=== PATIENT | female | born 1995 | race Caucasian/White ===

== ENCOUNTER 2020-03-04 07:14 | Emergency (ER) | payer OTHER, SELFPAY ==
--- NOTE | ~2020-03-04 | CT_ITS ---
EXAMINATION: CT abdomen pelvis wo con DATE: 03/04/2020 08:21 INDICATION: Right flank pain. TECHNIQUE: Computed tomography (CT) of the abdomen and pelvis was performed without intravenous contr ast. Automated exposure control and iterative reconstruction technique were employed. The dose-length product was 971.63 mGy-cm. COMPARISON: None. FINDINGS: The visualized portions of the lung bases demonstrate minimal atelectasis. No pleural effus ion. The heart size is normal. No pericardial effusion. There is diffuse hepatic steatosis. The gallb ladder, spleen, pancreas, adrenal glands, and left kidney are normal. There is mild right hydronephro sis and hydroureter. There is a 4 mm stone in distal right ureter. There are no dilated loops of rudy l. The appendix is normal. There are no pathologically enlarged lymph nodes. There is trace pelvic as cites, likely physiologic. There is mild lumbar spondylosis. IMPRESSION: 1. 4 mm stone in distal right ureter with mild right hydronephrosis and hydroureter. 2. Diffuse hepatic steatosis. Reviewed, dictated and finalized at location B. FRAME TENDER IMPRESSION: 1. 4 mm stone in distal right ureter with mild right hydronephrosis and hydrour eter. 2. Diffuse hepatic steatosis.
[2020-03-04 07:38] VITALS: BP 131/74; PULSE 80; RESP 16; TEMP 36.6; O2SAT 98
[2020-03-04 07:44] LABS: Add Urine Microscopic? YES; Appearance Urine Cloudy (Clear); Bilirubin Urine Negative (Negative); Blood Urine 3+ (Negative); Color Urine Amber (Yellow); Glucose Urine UA Negative (Negative); Ketones Urine Negative (Negative); Leukocyte Esterase Ur Negative (Negative); Nitrate Urine Negative (Negative); Protein Urine 1+ (Negative); Specific Grav Ur >= 1.030 (1.010-1.020); Urobilinogen Urine 0.2 mg/dL (0.2-1.0)
[2020-03-04 07:49] LABS: RBC Urine >75 /hpf (0-2); WBC Urine None seen /hpf (0-3)
[2020-03-04 07:50] LABS: Bacteria Urine 1+ /hpf; Squamous Epithelial Cell Urine Few /hpf (Few)
[2020-03-04] MEDS: KETOROLAC (*BKC) 60 MG/2 ML VIAL IM (07:50)
[2020-03-04 07:54] LABS: Pregnancy On Board Control Positive; Urine Pregnancy Test Negative
[2020-03-04 08:03] LABS: Basophils Absolute Auto 0.05 K/mm3 (0.00-0.10); Basophils Percent Auto 0.6 % (0.0-1.0); Eosinophils Percent Auto 6.1 % (1.0-6.0); Hematocrit 40.6 % (35.0-49.0); Immature Granulocyte Absolute 0.02 K/mm3 (0.00-0.00); Immature Granulocyte Percent A 0.2 % (0.0-0.0); Lymphocytes Absolute Auto 3.83 K/mm3 (1.10-4.50); Lymphocytes Percent Auto 46.9 % (18.0-42.0); Mean Corpuscular HGB Conc 34.5 g/dL (32.0-36.0); Mean Corpuscular Hemoglobin 30.4 pg (27.0-31.0); Mean Corpuscular Volume 88.1 fL (78.0-102.0); Mean Platelet Volume 9.9 fl (9.2-11.8); Monocytes Absolute Auto 0.67 K/mm3 (0.10-0.90); Monocytes Percent Auto 8.2 % (2.0-11.0); Neutrophils Absolute Auto 3.1 K/mm3 (1.7-7.2); Platelet Count Result 238 K/mm3 (150-420); Red Blood Count 4.61 M/mm3 (4.20-5.40); Red Cell Distribution Width 12.2 % (11.6-14.4); White Blood Count 8.2 K/mm3 (4.8-10.8)
[2020-03-04 08:18] LABS: Alanine Aminotransferase 63 U/L (14-59); Albumin Level 3.6 g/dL (3.4-5.0); Alkaline Phosphatase 83 U/L (46-116); Anion Gap 8 mmol/L (8-16); Aspartate Amino Transferase 25 U/L (15-37); Bilirubin,Total 0.2 mg/dL (0.00-1.00); Blood Urea Nitrogen 16 mg/dL (7-18); Calcium 8.7 mg/dL (8.5-10.1); Carbon Dioxide 26 mmol/L (21-32); Chloride 106 mmol/L (98-108); Estimated CRCL calculation 82 ml/min; Estimated Glomerular Filt Rate > 60; Glucose 120 mg/dL (70-99); Osmolality Calculated 292 mOsm/kg (285-295); Potassium 4.1 mmol/L (3.5-5.1); Sodium 140 mmol/L (136-145); Total Protein 7.1 g/dL (6.4-8.2)
[2020-03-04] MEDS: TAMSULOSIN HCL 0.4 MG CAPSULE PO (08:45)
--- NOTE | 2020-03-04 08:48 | ED.ABDPAIN ---
HPI - Abdominal Pain General Chief Complaint: Abdominal Pain Stated Complaint: back and abd pain Time Seen by Provider: 03/04/20 07:45 Source: patient and family Mode of arrival: ambulatory Limitations: no limitations History of Present Illness HPI narrative: Joshua says she has had abdominal pain going from left flank toward groin for the past several hours starting last last pm at 11pm. This is moderately severe, ongoing, crampy in nature, and not associated with nausea. Her urine has been tea colored. NSAIDs at home have not relieved the pain. Pertinent past history: other (depression, anxiety) Exacerbating factors: nothing Relieving factors: nothing Treatments prior to arrival: NSAIDs Related Data Home Medications Medication Instructions Recorded Confirmed atorvastatin 10 mg PO DAILY 03/04/20 03/04/20 lamotrigine 25 mg PO DAILY 03/04/20 03/04/20 venlafaxine 10 mg PO DAILY 03/04/20 03/04/20 Allergies Allergy/AdvReac Type Severity Reaction Status Date / Time No Known Allergies Allergy Verified 03/04/20 07:37 Review of Systems Constitutional: Constitutional: Reports no additional constitutional complaints Eyes: Eyes: Reports no additional eye complaints ENT: Reports system reviewed and no additional complaints, except as documented Cardiovascular: Cardiovascular: Reports no additional cardiovascular complaints Respiratory: Respiratory: Reports no additional respiratory complaints Gastrointestinal: Gastrointestinal: Reports no additional gastrointestinal complaints Genitourinary: Genitourinary: Reports no additional female genitourinary complaints Musculoskeletal: Musculoskeletal: Reports no additional musculoskeletal complaints Integumentary/Breasts: Skin/Breast: Reports system reviewed and no additional complaints, except as docu Neurologic: Reports system reviewed and no additional complaints, except as documented Psychiatric: Psychiatric: Reports no additional psychiatric complaints Endocrine: Endocrine: Reports no additional endocrine complaints Hematologic/Lymphatic: Hematologic/Lymphatic: Reports no additional hematologic/lymphatic complaints Allergic/Immunologic: Allergic/Immunologic: Reports no additional allergic/immunologic complaints PMFSH Past Medical History Medical History Depression Surgical History Surgical History No significant past surgical history Family History Family History Other No significant family history Social History Social History Smoking status: Light tobacco smoker Alcohol use details: very rare minimal alcohol use Living arrangements: with friend(s) Exam Const: General: no acute distress HENMT: Head: normal to inspection Ears: TM's normal bilaterally General nose exam: Normal nares present Face and sinus: normal facial exam Eyes: Conjunctivae: conjunctivae normal EOM: EOMs intact bilaterally Neck: Neck: normal visual inspection Chest: Chest palpation & inspection: normal inspection of the chest Resp: Effort & Inspection: normal respiratory effort Cardio: Rate: regular rate Rhythm: regular rhythm GI: GI Palp: Yes Soft to palpation Auscultation: normal bowel sounds : General: Yes no CVA tenderness Skin: General skin exam: normal color Neuro: General: patient oriented x3 Speech: normal speech Extrem: General: normal to inspection Psych: Appearance: grossly normal Mental Status: mental status grossly normal Thought content: Yes Normal thought content present Course Course Emergency Course: Labs and CT scan reviewed with patient. She appears much improved after ketorolac 60mg Im. We will send her home with scripts for ketorolac, zofran odt, a few hydrocodone, and flomax .4 bid. I have asked her to follow up wit
[2020-03-04 08:50] VITALS: BP 136/75; PULSE 72; RESP 20; O2SAT 98
== END 2020-03-04 09:00 | disposition home or self-care (01) ==
PROVIDERS: Emergency Provider Emergency Medicine; PCP Physician Assistant
DX: N20.0 Calculus of kidney (principal)
CPT/HCPCS: 36415; 74176; 80053; 81001; 81025; 85025; 96372; 99283; 99284; A9270; J1885

== ENCOUNTER 2020-05-08 02:44 | Emergency (ER) | payer OTHER, SELFPAY ==
--- NOTE | ~2020-05-08 | CT_ITS ---
EXAMINATION: CT abdomen pelvis w con DATE: 05/08/2020 04:59 INDICATION: Right flank pain. Right lower quadrant tenderness. TECHNIQUE: Computed tomography (CT) of the abdomen and pelvis was performed with 100 mL Omnipaque 350 intravenous contrast. Automated exposure control and iterative reconstruction technique were employe d. The dose-length product was 695.66 mGy-cm. COMPARISON: None. FINDINGS: The visualized portions of the lung bases demonstrate mild atelectasis. No pleural effusion . The heart size is normal. No pericardial effusion. There is diffuse hepatic steatosis. The gallblad kanika, spleen, pancreas, adrenal glands, and left kidney are normal. There is a delayed right-sided con trast nephrogram. There is mild right hydronephrosis and hydroureter. There is a 5 mm stone in distal right ureter. There are no dilated loops of bowel. The appendix is normal. There are no pathological ly enlarged lymph nodes. There is trace pelvic ascites. There is mild thoracolumbar spondylosis. IMPRESSION: 1. 5 mm stone in distal right ureter with mild right hydronephrosis and hydroureter. Reviewed, dictated and finalized at location A. OSAL LEAD WRITER IMPRESSION: 1. 5 mm stone in distal right ureter with mild right hydronephrosis and hydrour eter.
--- NOTE | 2020-05-08 02:59 | ED.BACK ---
HPI - Back Pain/Injury General Chief Complaint: Back Pain/Injury Stated Complaint: Back pain Time Seen by Provider: 05/08/20 02:59 Source: patient Mode of arrival: ambulatory Limitations: no limitations History of Present Illness HPI Narrative: 24-year-old woman diagnosed with right distal ureter stone 2 months ago comes in today with 2 days of increasing right flank pain. She states that she has been taking oral anti-inflammatories And they do not help. She has had nausea but no vomiting, fever, hematuria, dysuria, recent cough or cold symptoms or injuries. On March 04 she presented with similar symptoms on CT showed a 4 mm stone in right distal ureter with mild hydronephrosis. She states her symptoms at that time resolved in about two weeks. She did not follow-up with urologist. MD elicited complaint: back pain Pertinent past history: kidney stones Onset (ago): day(s) (2) Timing: constant and progressively worsening Severity: severe Similar Symptoms Previously: Yes Quality: sharp Location: right flank Radiation: none Exacerbating factors: none Relieving factors: none Context: history of kidney stones Associated symptoms: other (nausea) Treatments prior to arrival: NSAIDS Related Data Home Medications Medication Instructions Recorded Confirmed atorvastatin 10 mg PO DAILY 03/04/20 05/08/20 lamotrigine 25 mg PO DAILY 03/04/20 05/08/20 venlafaxine 10 mg PO DAILY 03/04/20 05/08/20 Allergies Allergy/AdvReac Type Severity Reaction Status Date / Time No Known Allergies Allergy Verified 03/04/20 07:37 Review of Systems Constitutional: Constitutional: Denies chills and Denies fever(s) Eyes: Eyes: Denies change in vision and Denies photophobia ENT: Denies dysphagia, Denies nasal congestion and Denies sore throat Cardiovascular: Cardiovascular: Denies chest pain and Denies radiating jaw, neck or arm pain Respiratory: Respiratory: Denies cough and Denies dyspnea Gastrointestinal: Gastrointestinal: Denies abdominal pain, Reports nausea and Denies vomiting Genitourinary: Genitourinary: Reports as per HPI, Denies hematuria, Denies nocturia, Denies dysuria and Reports flank pain Musculoskeletal: Musculoskeletal: Denies arthralgias and Denies joint swelling Integumentary/Breasts: Skin/Breast: Denies pruritus, Denies erythema and Denies rash Neurologic: Denies vertigo, Denies dizziness and Denies syncope Endocrine: Endocrine: Denies polydipsia and Denies polyuria Hematologic/Lymphatic: Hematologic/Lymphatic: Denies easy bleeding and Denies easy bruising Allergic/Immunologic: Allergic/Immunologic: Denies lip swelling and Denies throat swelling PMFSH Past Medical History Medical History Depression Ureterolithiasis Surgical History Surgical History No significant past surgical history Family History Family History Other No significant family history Social History Social History (Updated 05/08/20 @ 03:41 by Bladimir Badillo MD) Smoking status: Light tobacco smoker Alcohol intake: never Living arrangements: with family Exam Const: General: alert Nutritional Appearance: obese Orientation/consciousness: patient oriented x3 Other: Moderate to severe acute distress. HENMT: Head: normal to inspection Ears: external ears normal, TM's normal bilaterally and EAC's normal General nose exam: Normal nares present Face and sinus: normal facial exam Mouth: Yes moist mucous membranes Throat: posterior oropharynx normal Eyes: Conjunctivae: conjunctivae normal Pupils: Equal, round and reactive pupils present EOM: EOMs intact bilaterally Resp: Effort & Inspection: normal respiratory effort and not labored Auscultation: clear to auscultation bilaterally, no rales, no rhonchi and no wheezes Cardio: Rate: regular rate Rhythm: r
[2020-05-08 03:05] VITALS: BP 123/99; PULSE 84; RESP 20; TEMP 36.6; O2SAT 98
[2020-05-08] MEDS: HYDROmorphone HCL INJ (*CRX) 2 MG/ML VIAL 0.5 MG IV PUSH ×3 (03:10→05:41)
[2020-05-08] MEDS: ONDANSETRON INJ 4 MG/2 ML VIAL IV PUSH (03:16)
[2020-05-08] MEDS: SODIUM CHLORIDE 0.9% IV 1,000 ML 999 ML IV CONT (03:16)
[2020-05-08] MEDS: TAMSULOSIN HCL 0.4 MG CAPSULE PO (03:17)
[2020-05-08 03:18] VITALS: BP 123/99; PULSE 84; RESP 18; TEMP 36.6; O2SAT 98
[2020-05-08 03:36] LABS: Basophils Absolute Auto 0.04 K/mm3 (0.00-0.10); Basophils Percent Auto 0.6 % (0.0-1.0); Eosinophils Absolute Auto 0.34 K/mm3 (0.02-0.50); Hematocrit 37.7 % (35.0-49.0); Hemoglobin 13.1 g/dL (12.0-15.0); Immature Granulocyte Absolute 0.02 K/mm3 (0.00-0.00); Immature Granulocyte Percent A 0.3 % (0.0-0.0); Lymphocytes Percent Auto 41.4 % (18.0-42.0); Mean Corpuscular HGB Conc 34.7 g/dL (32.0-36.0); Mean Corpuscular Hemoglobin 30.5 pg (27.0-31.0); Mean Corpuscular Volume 87.9 fL (78.0-102.0); Mean Platelet Volume 10.2 fl (9.2-11.8); Monocytes Absolute Auto 0.62 K/mm3 (0.10-0.90); Monocytes Percent Auto 9.2 % (2.0-11.0); Neutrophils Percent Auto 43.5 % (50.0-70.0); Platelet Count Result 248 K/mm3 (150-420); Red Blood Count 4.29 M/mm3 (4.20-5.40); Red Cell Distribution Width 12.7 % (11.6-14.4); White Blood Count 6.8 K/mm3 (4.8-10.8)
[2020-05-08 03:53] LABS: Alanine Aminotransferase 52 U/L (14-59); Albumin Level 3.3 g/dL (3.4-5.0); Alkaline Phosphatase 76 U/L (46-116); Anion Gap 10 mmol/L (8-16); Aspartate Amino Transferase 28 U/L (15-37); Bilirubin,Total 0.2 mg/dL (0.00-1.00); Blood Urea Nitrogen 14 mg/dL (7-18); Calcium 8.3 mg/dL (8.5-10.1); Carbon Dioxide 26 mmol/L (21-32); Chloride 108 mmol/L (98-108); Estimated CRCL calculation 71 ml/min; Estimated Glomerular Filt Rate 56; Glucose 93 mg/dL (70-99); Lipase 124 U/L (73-393); Osmolality Calculated 298 mOsm/kg (285-295); Partial Thromboplastin Time 28.3 SEC (23.90-30.70); Potassium 3.8 mmol/L (3.5-5.1); Prothrombin Time 10.8 Seconds (9.50-12.10); Sodium 144 mmol/L (136-145); Total Protein 6.6 g/dL (6.4-8.2)
[2020-05-08 03:58] LABS: Lactic Acid Reflex 1.3 mmol/L (0.4-2.0)
[2020-05-08 04:18] LABS: Add Urine Microscopic? YES; Appearance Urine Clear (Clear); Bilirubin Urine 1+ (Negative); Blood Urine 3+ (Negative); Color Urine Yellow (Yellow); Glucose Urine UA Negative (Negative); Ketones Urine Negative (Negative); Leukocyte Esterase Ur Negative LEU/UL (Negative); Nitrate Urine Negative (Negative); Protein Urine 1+ (Negative); Specific Grav Ur >= 1.030 (1.010-1.020); Urobilinogen Urine 0.2 mg/dL (0.2-1.0); pH Urine 5.5 (5.0-8.0)
[2020-05-08 04:22] LABS: Pregnancy On Board Control Positive; RBC Urine >75 /hpf (0-2); Squamous Epithelial Cell Urine Few /hpf (Few); Urine Pregnancy Test Negative; WBC Urine 0-3 /hpf (0-3)
[2020-05-08 04:23] LABS: Bacteria Urine Trace /hpf
[2020-05-08 06:05] VITALS: BP 124/88; PULSE 75; RESP 18; TEMP 36.4; O2SAT 99
== END 2020-05-08 06:06 | disposition home or self-care (01) ==
PROVIDERS: Emergency Provider Emergency Medicine; PCP Physician Assistant
DX: N20.1 Calculus of ureter (principal)
CPT/HCPCS: 36415; 74177; 80053; 81001; 81025; 83605; 83690; 85025; 85610; 85730; 96361; 96374; 96375; 96376; 99283; 99284; A9270; J1170; J2405; J7030; Q9967

== ENCOUNTER 2021-06-08 12:31 | Emergency (ER) | payer OTHER, SELFPAY ==
--- NOTE | ~2021-06-08 | XR_ITS ---
EXAMINATION: XR chest 1V portable DATE: 06/08/2021 13:00 INDICATION: Cough. Overdose. TECHNIQUE: A single frontal view of the chest was obtained. COMPARISON: CT abdomen and pelvis 05/08/2020 FINDINGS: The chest demonstrates clear lungs without pneumonia, pleural effusion, or pneumothorax. Th e heart size is normal. IMPRESSION: 1. No acute cardiopulmonary disease. Reviewed, dictated and finalized at location A.
[2021-06-08 12:35] VITALS: BP 129/90; PULSE 110; RESP 16; TEMP 36.6; O2SAT 97
--- NOTE | 2021-06-08 12:39 | ECG_ITS ---
Measurements Intervals [place] Rate: 106 P: 33 [place]: 128 QRS: 60 QRSD: 86 T: 12 QT: 338 QTc: 451 Interpretive Statements SINUS TACHYCARDIA NONSPECIFIC T-WAVE ABNORMALITY ABNORMAL RHYTHM ECG NO PREVIOUS ECG AVAILABLE FOR COMPARISON Electronically Signed On 06-08-2021 17:04:58 CDT by Hallie Lazo M.D.
[2021-06-08] MEDS: SODIUM CHLORIDE 0.9% IV 1,000 ML 999 ML IV CONT (12:45)
[2021-06-08] MEDS: PANTOPRAZOLE SODIUM IV 40 MG VIAL IV PUSH (12:48)
[2021-06-08] MEDS: ONDANSETRON INJ 4 MG/2 ML VIAL IV PUSH (12:57)
[2021-06-08 12:59] LABS: Basophils Absolute Auto 0.04 K/mm3 (0.00-0.10); Basophils Percent Auto 0.7 % (0.0-1.0); Eosinophils Absolute Auto 0.37 K/mm3 (0.02-0.50); Eosinophils Percent Auto 6.4 % (1.0-6.0); Hematocrit 41.6 % (35.0-49.0); Hemoglobin 14.1 g/dL (12.0-15.0); Immature Granulocyte Absolute 0.01 K/mm3 (0.00-0.00); Immature Granulocyte Percent A 0.2 % (0.0-0.0); Lymphocytes Absolute Auto 2.47 K/mm3 (1.10-4.50); Lymphocytes Percent Auto 42.6 % (18.0-42.0); Mean Corpuscular HGB Conc 33.9 g/dL (32.0-36.0); Mean Corpuscular Hemoglobin 30.2 pg (27.0-31.0); Mean Corpuscular Volume 89.1 fL (78.0-102.0); Mean Platelet Volume 9.9 fl (9.2-11.8); Monocytes Absolute Auto 0.48 K/mm3 (0.10-0.90); Monocytes Percent Auto 8.3 % (2.0-11.0); Neutrophils Absolute Auto 2.4 K/mm3 (1.7-7.2); Neutrophils Percent Auto 41.8 % (50.0-70.0); Platelet Count Result 212 K/mm3 (150-420); Red Blood Count 4.67 M/mm3 (4.20-5.40); Red Cell Distribution Width 12.4 % (11.6-14.4); White Blood Count 5.8 K/mm3 (4.8-10.8)
[2021-06-08 12:59] LABS: Add Urine Microscopic? NO; Appearance Urine Clear (Clear); Bilirubin Urine Negative (Negative); Blood Urine Negative (Negative); Color Urine Yellow (Yellow); Glucose Urine UA Negative (Negative); Ketones Urine Negative (Negative); Leukocyte Esterase Ur Negative (Negative); Nitrate Urine Negative (Negative); Protein Urine Negative (Negative); Specific Grav Ur >= 1.030 (1.010-1.020); Urobilinogen Urine 0.2 mg/dL (0.2-1.0); pH Urine 5.5 (5.0-8.0)
[2021-06-08 13:02] VITALS: RESP 16
[2021-06-08 13:06] LABS: Amphetamine Screen Urine Negative (Negative); Barbiturate Screen Urine Negative (Negative); Benzodiazepines Screen Urine Negative (Negative); Cannabinoid Screen Urine Positive (Negative); Cocaine Screen Urine Negative (Negative); Methadone Screen Urine Negative (Negative); Opiate Screen Urine Negative (Negative); Phencyclidine Screen Urine Negative (Negative)
[2021-06-08 13:09] VITALS: BP 115/82; PULSE 106; RESP 20; TEMP 36.9; O2SAT 100
[2021-06-08 13:12] LABS: SPREG INTERNAL CONTROL Positive; Serum Qual hCG Negative
--- NOTE | 2021-06-08 13:17 | PC.NURSE ---
1230 poison control called, spoke with Rodolfo. information given on medications and amount taken. 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 iv fluids as needed for hypotension and pressors if needed. recommends Levophed, DO NOT USE DOPAMINE. standard labs, ua, drug screen atorvastatin 10mg x5=50mg concerns= GI upset tx: antiemetics
--- NOTE | 2021-06-08 13:19 | ED.OVERDOSE ---
HPI - Overdose General Chief Complaint: Overdose Stated Complaint: ambulance Time Seen by Provider: 06/08/21 12:34 Source: patient, EMS and RN notes reviewed Mode of arrival: EMS Limitations: no limitations History of Present Illness MD complaint: intentional overdose (pt was angry at her boyfriend and denies suicidality.) Onset (ago): hour(s) (1) Intent: unwilling to say (see nurses notes.) How Overdose Was Discovered: other Context: Intentional Overdose: relationship problems Associated symptoms: depression Treatments Prior to Arrival: none Related Data Home Medications Medication Instructions Recorded Confirmed atorvastatin 10 mg PO DAILY 03/04/20 06/08/21 venlafaxine 150 mg PO DAILY 03/04/20 06/08/21 quetiapine 50 mg PO QPM 06/08/21 06/08/21 Allergies Allergy/AdvReac Type Severity Reaction Status Date / Time No Known Allergies Allergy Verified 06/08/21 12:47 Review of Systems Review of Systems: All systems reviewed & are unremarkable except as noted in HPI and below PMFSH Past Medical History Medical History Depression Overdose Ureterolithiasis Surgical History Surgical History No significant past surgical history Family History Family History Other No significant family history Social History Social History Smoking status: Light tobacco smoker Alcohol intake: never Alcohol use details: very rare minimal alcohol use Substance use type: does not use Exam Const: General: no acute distress and alert Orientation/consciousness: patient oriented x3 HENMT: Head: normal to inspection Ears: external ears normal, TM's normal bilaterally and EAC's normal General nose exam: Normal external nose present and Normal nares present Face and sinus: normal facial exam and sinuses nontender Mouth: Yes moist mucous membranes Throat: posterior oropharynx normal Eyes: Conjunctivae: conjunctivae normal Pupils: Equal, round and reactive pupils present EOM: EOMs intact bilaterally Neck: Neck: normal visual inspection and no lymphadenopathy Chest: Chest palpation & inspection: normal inspection of the chest Resp: Effort & Inspection: normal respiratory effort Auscultation: clear to auscultation bilaterally Cardio: Rate: regular rate Rhythm: regular rhythm GI: GI Palp: Yes Soft to palpation and No Tenderness to palpation present (GI) Auscultation: normal bowel sounds : General: Yes bladder normal to palpation and Yes no CVA tenderness Back/Spine/Pelvis: Back: no CVA tenderness Skin: General skin exam: normal color Neuro: General: patient oriented x3, moves all extremities, no meningeal signs, no focal motor deficits and CN's II-XI intact bilaterally Speech: normal speech Gait exam (Neuro): Normal gait present Motor exam (neuro): 5/5 motor strength present throughout and No tremor noted Extrem: General: normal to inspection and no pedal edema Psych: Appearance: well kempt Mental Status: mental status grossly normal Affect: Sad affect present and Anxious affect present Thought content: Yes Normal thought content present Course Course Emergency Course: Pt was stable in the ED. For ICU observation, then Mental Health review. Reevaluation(s) Reevaluation #1: VSS. no acute GI loss. Date: 06/08/21 Time: 13:29 Vital Signs Vital signs: Vital Signs Temperature 36.6 C 06/08/21 12:35 Pulse Rate 110 H 06/08/21 12:35 Respiratory Rate 16 06/08/21 12:35 Blood Pressure 129/90 06/08/21 12:35 Pulse Oximetry 97 06/08/21 12:35 Temperature 36.8 C 06/08/21 16:24 Pulse Rate 76 06/08/21 16:24 Respiratory Rate 16 06/08/21 16:24 Blood Pressure 101/71 06/08/21 16:24 Pulse Oximetry 97 06/08/21 16:24 MDM - Overdose Differential Diagno
[2021-06-08 13:22] LABS: Acetaminophen < 2 ug/mL (10-30); Alanine Aminotransferase 70 U/L (14-59); Albumin Level 3.7 g/dL (3.4-5.0); Alkaline Phosphatase 82 U/L (46-116); Anion Gap 9 mmol/L (8-16); Aspartate Amino Transferase 32 U/L (15-37); Bilirubin,Total 0.4 mg/dL (0.00-1.00); Blood Urea Nitrogen 18 mg/dL (7-18); Calcium 8.6 mg/dL (8.5-10.1); Carbon Dioxide 26 mmol/L (21-32); Chloride 104 mmol/L (98-108); Estimated CRCL calculation 86 ml/min; Estimated Glomerular Filt Rate > 60; Ethanol 4 mg/dL (0-6); Glucose 111 mg/dL (70-99); Osmolality Calculated 290 mOsm/kg (285-295); Potassium 3.7 mmol/L (3.5-5.1); Salicylate 4.9 mg/dL (2.8-20.0); Sodium 139 mmol/L (136-145); Thyroid Stimulating Hormone 8.68 uIU/mL (0.36-3.74); Total Protein 7.3 g/dL (6.4-8.2)
[2021-06-08 13:23] LABS: Magnesium 1.9 mg/dL (1.8-2.4)
--- NOTE | 2021-06-08 13:32 | PCDIET ---
Addendum entered by Renetta Vyas RN 06/08/21 13:34: from pt's boyfriend that were received on mother phone. Original Note: pt upset and crying loudly. mother communicating messages from pt's boyfriend eugenia mother stepped out of the room.
[2021-06-08 13:41] LABS: Lactic Acid Reflex 1.1 mmol/L (0.4-2.0)
--- NOTE | 2021-06-08 13:44 | PC.NURSE ---
1335 pt mother in room , yelling between each other, mother asked to leave the room. pt states doesnt want to be here and wants to go home. voiced reasoning for staying at hospital for observation period related to medications taken. pt voiced understanding. lights dimmed, head of bed lowered and blanket applied. pt remains in direct vision of this personal lines underwriter or another RN at all times. 1345 mother called on phone, wanting to know why she was asked to leave, explained pt safety is top concern. mother states pt was trying to leave, no attempts of pt getting out of bed were seen by either RN at desk directly across from room. mother wanting to return to room, explained no visitors are allowed at this time for pt as she is resting calmly with eyes closed.
[2021-06-08 13:52] VITALS: BP 110/74; PULSE 91; RESP 20; O2SAT 96
[2021-06-08 14:47] VITALS: BP 101/73; PULSE 86; RESP 20; O2SAT 97
--- NOTE | 2021-06-08 14:58 | PC.NURSE ---
no change in pt condition. continues to sleep. awakens easily. awaiting call-c
[2021-06-08] MEDS: SODIUM CHLORIDE 0.9% IV 1,000 ML 125 ML IV CONT (15:20)
--- NOTE | 2021-06-08 15:46 | PC.NURSE ---
poison control updated with lab results. requested repeat liver function test, salicylate level with repeat ekg at 6pm. update to dr tee and update to danny at [facility]
[2021-06-08 16:24] VITALS: BP 101/71; PULSE 76; RESP 16; TEMP 36.8; O2SAT 97
== END 2021-06-08 16:35 | disposition short-term general hospital (02) ==
PROVIDERS: Emergency Provider Emergency Medicine; PCP Physician Assistant
DX: T50.902A Poisoning by unspecified drugs, medicaments and biological substances, intentional self-harm, initial encounter (principal)
CPT/HCPCS: 36415; 71045; 80053; 80307; 81003; 83605; 83735; 84443; 84703; 85025; 93005; 96361; 96374; 96375; 99285; C9113; J2405; J7030

== ENCOUNTER 2021-06-09 09:14 | Observation (INO) | payer OTHER, SELFPAY ==
--- NOTE | 2021-06-08 17:25 | ADMGEN ---
This patient, Joshua Milton, was admitted to ICU-4 at 1724. Patient/family oriented to hospital policies and general routines including ID bracelet, bed and alarms, visiting hours, pain management, procedures, bathroom and other care routines, personal items, smoking policy, room service/diet, and visiting hours. Information on how to activate the Rapid Response Team has been discussed. Patient/Family are encouraged to report perceived risks to care and to ask questions if they do not understand what they are told or what they should do.
[2021-06-08 17:34] VITALS: BMI 30.8
--- NOTE | 2021-06-08 17:59 | ECG_ITS ---
Measurements Intervals [place] Rate: 80 P: 32 MA: 143 QRS: 59 QRSD: 88 T: 29 QT: 382 QTc: 443 Interpretive Statements SINUS RHYTHM NORMAL ECG COMPARED TO ECG 06/08/2021 11:48:26 SINUS RHYTHM NOW PRESENT NO SIGNIFICANT CHANGE Electronically Signed On 06-09-2021 14:11:59 CDT by Rupesh Nolasco M.D.
[2021-06-08 18:00] VITALS: PULSE 79
[2021-06-08 19:24] LABS: Alanine Aminotransferase 52 U/L (4-35); Albumin Level 3.8 g/dL (3.5-5.1); Alkaline Phosphatase 74 U/L (38-126); Aspartate Amino Transferase 41 U/L (14-36); Bilirubin,Total 0.4 mg/dL (0.2-1.3)
[2021-06-08 19:26] LABS: Salicylate < 1.0 mg/dL (2-20)
[2021-06-08 20:00] VITALS: BP 113/75; PULSE 90; RESP 16; TEMP 36.8; O2SAT 100
--- NOTE | 2021-06-08 20:12 | PM.IMHP ---
H&P: HPI History of Present Illness Date/Time: Patient requires inpatient monitoring with expected length of stay to exceed 2 midnights for management of care. 06/08/21 20:12 Chief Complaint: Overdose Narrative: Ms. Milton is a 25-year-old female who presented to an outside emergency room after taking multiple medications because she was angry with her boyfriend. Patient states she has a history of depression, anxiety, and OCD. Patient states that her boyfriend had recently started doing methamphetamines after being clean for months and she became very angry with him and she wanted to to his attention and she took 3 of her 10 mg atorvastatin, 3 of her 50 mg a Seroquel, and 3 of her 150 mg Effexor. Patient states that she did not think that this would hurt her, but she wanted to call his attention to her. Patient states that the time she may have thought of harming herself, but now she was states she never really wanted to harm herself. Patient denies ever having attempted to harm herself in the past. Patient states that she does smoke approximately 1/2 pack cigarettes a day and has done so for 2 years. Patient states she quit smoking marijuana a few weeks ago because it was making her mind race. Patient states she is feeling fine at this time she denies any chest pain, shortness for breath, lightheadedness, dizziness, syncopal, or near syncopal episodes. Patient states that she feels totally normal. Upon evaluation at outside hospital patient had EKG performed, CBC, CMP, salicylate level, acetaminophen level, and liver function tests. Poison Control was notified and stated the patient needed to be monitored for 24 hours and if her blood pressure were to be low she would need to be placed on Levophed. The hospital the patient was seen at was unable to provide these services she was transferred to this establishment. Poison Control did state that they did want repeat EKG at 6:00 a.m. and 12 hours from the initial EKG to monitor QT. Poison Control also stated they wanted salicylate level and liver function tests at 6:00 a.m. from initial test to see if there are any changes. Review of Systems Review of Systems: A 12 point review of systems was completed patient all pertinent positive and negative per HPI the remainder are unremarkable. [facility] Past Medical History Medical History (Updated 06/08/21 @ 20:22 by Ayesha Alcantara APRN) Anxiety Depression OCD (obsessive compulsive disorder) Overdose Ureterolithiasis Surgical History Surgical History No significant past surgical history Family History Family History Other No significant family history Social History Social History (Updated 06/08/21 @ 20:21 by Ayesha Alcantara APRN) Smoking packs per day: 0.5 Smoking cigarettes per day: 10.0 Years smoked: 2 Smoking pack-years: 1.00 Smoking status: Current every day smoker Alcohol intake: never Alcohol use details: very rare minimal alcohol use Substance use: former Substance use type: marijuana Spiritual care concerns: No Meds Home Medications and Allergies Home Medications Medication Instructions Recorded Confirmed Type atorvastatin 10 mg PO DAILY 03/04/20 06/08/21 History venlafaxine 150 mg PO DAILY 03/04/20 06/08/21 History quetiapine 50 mg PO QPM 06/08/21 06/08/21 History Allergies Allergy/AdvReac Type Severity Reaction Status Date / Time No Known Allergies Allergy Verified 06/08/21 12:47 Vital Signs Vital Signs - 24 hr 06/08/21 18:00 Pulse Rate 79 Exam Narrative: Constitutional: Patient is well-nourished in no acute distress. Patient is alert and oriented x3 HEENT: Moist mucous membranes. No scleral icterus. No lymphadenopathy. Neck: No carotid bruits noted no JVD noted Lungs: Lung sounds are clear to auscultation bilaterally. No accessory muscle us
--- NOTE | 2021-06-08 20:57 | PC.NURSE ---
2030 [place] poison control called and informed of new labs and ekg. No new orders
[2021-06-08 22:00] VITALS: PULSE 75
[2021-06-09] VITALS (9 sets, daily range): BP systolic 92–110; BP diastolic 64–76; PULSE 74–91; RESP 16–21; TEMP 36.5–36.7; O2SAT 100
--- NOTE | 2021-06-09 | ECG_ITS ---
Measurements Intervals [place] Rate: 76 P: 29 ME: 154 QRS: 70 QRSD: 92 T: 34 QT: 391 QTc: 440 Interpretive Statements SINUS RHYTHM NORMAL ECG COMPARED TO ECG 06/08/2021 18:14:25 NO SIGNIFICANT CHANGES Electronically Signed On 06-09-2021 14:24:45 CDT by Rupesh Nolasco M.D.
[2021-06-09 04:35] LABS: Basophils Percent Auto 0.6 % (0.2-1.2); Eosinophils Absolute Auto 0.4 K/mm3 (0-0.3); Eosinophils Percent Auto 6.2 % (0-4.4); Hemoglobin 12.5 g/dL (12.0-15.0); Immature Granulocyte Absolute 0.01 K/mm3 (0.00-0.031); Immature Granulocyte Percent A 0.1 % (0-0.5); Lymphocytes Absolute Auto 3.21 K/mm3 (0.9-3.2); Mean Corpuscular HGB Conc 33.8 g/dl (32-36); Mean Corpuscular Hemoglobin 30.6 pg (26-34); Mean Corpuscular Volume 90.5 fl (80-100); Mean Platelet Volume 9.9 fl (7.4-10.4); Monocytes Absolute Auto 0.6 K/mm3 (0.1-0.6); Neutrophils Absolute Auto 2.7 K/mm3 (1.3-6.7); Neutrophils Percent Auto 39.1 % (45.5-73.1); Platelet Count Result 195 k/mm3 (150-375); Red Blood Count 4.09 M/mm3 (4.2-5.4); Red Cell Distribution Width 12.3 % (11.5-14.5)
[2021-06-09 04:46] LABS: Alanine Aminotransferase 52 U/L (4-35); Albumin Level 3.7 g/dL (3.5-5.1); Alkaline Phosphatase 72 U/L (38-126); Anion Gap 3 mmol/L (8-16); Aspartate Amino Transferase 40 U/L (14-36); Bilirubin,Total 0.5 mg/dL (0.2-1.3); Blood Urea Nitrogen 13 mg/dL (7-17); Calcium 8.4 mg/dL (8.4-10.2); Carbon Dioxide 28 mmol/L (22-30); Chloride 108 mmol/L (98-107); Estimated CRCL calculation 99 ml/min; Estimated Glomerular Filt Rate > 60; Glucose 81 mg/dL (65-110); Potassium 3.9 mmol/L (3.4-5.0); Sodium 139 mmol/L (137-145)
--- NOTE | 2021-06-09 08:16 | PM.IMPN ---
Progress Note: A&P Assessment and Plan (1) Overdose: Code(s): T50.901A - Poisoning by unspecified drugs, medicaments and biological substances, accidental (unintentional), initial encounter Status: Acute Assessment and Plan: Patient took extra medications including atorvastatin, Effexor and Seroquel to ?get my boyfriends attention?. She denies SI/HI. QTC was 451 on admission and slightly improved on repeat. EKG from today is pending. Will have crisis evaluate the patient. Continue to monitor in ICU setting. (2) Elevated LFTs: Code(s): R79.89 - Other specified abnormal findings of blood chemistry Status: Acute Assessment and Plan: AST and ALT are mildly elevated. The ALT has been elevated in the past but the AST has been normal. She had a CT scan in April 2020 showing diffuse hepatic steatosis. No hepatitis panel on record. She denies IV drug use but her partner is a known drug user. Will check hepatitis panel. According to the patient, she only took 30 mg of atorvastatin so would not expect this to have a profound effect on her liver tests. Suspect more likely this is related to herpetic steatosis but again will exclude occult hepatitis. test negative. TSH was slightly elevated initially but on repeat was normal. (3) OCD (obsessive compulsive disorder): Code(s): F42.9 - Obsessive-compulsive disorder, unspecified Status: Acute Assessment and Plan: Patient with OCD. She is on Seroquel and venlafaxine. These are on hold at this time. (4) Depression: Code(s): F32.9 - Major depressive disorder, single episode, unspecified Status: Acute Assessment and Plan: As above (5) Anxiety: Code(s): F41.9 - Anxiety disorder, unspecified Status: Acute Assessment and Plan: As above (6) Tobacco abuse: Code(s): Z72.0 - Tobacco use Status: Acute Assessment and Plan: Patient was educated about the benefits of smoking cessation. Subjective Date/time seen: 06/09/21 08:16 Interval history: 25yo female with OCD, depression and anxiety here for intentional overdose. Assuming care. Chart reviewed. Feels well. Slept off and on. No headache, chest pain or abd pain. Has not been having abd pain after eating. Exam Narrative: AF 98.1 1089/71 79 16 100% ra Gen - NARD lying flat in bed Chest - CTA bilaterally, nml RR CV - RRR S1/S2. telemetry showing no significant dysrhythmias Abd - Soft, NT/ND, Positive BS Ext - No pedal edema Neuro - Alert and oriented. Nonfocal exam. Psych - Nml mood and affect. Good eye contact. Pleasant and cooperative. Skin - Warm and dry Objective Data Vital Signs Vital Signs: Vital Signs - 24 hr 06/08/21 18:00 06/08/21 20:00 06/08/21 22:00 Temperature 98.2 F Pulse Rate 79 90 75 Respiratory Rate 16 Blood Pressure 113/75 Pulse Oximetry 100 06/09/21 00:00 06/09/21 02:00 06/09/21 03:45 Temperature 98.1 F Pulse Rate 82 86 76 Respiratory Rate 16 Blood Pressure 110/67 Pulse Oximetry 100 06/09/21 04:00 06/09/21 05:55 Temperature 98.1 F Pulse Rate 77 79 Respiratory Rate 16 Blood Pressure 109/71 Pulse Oximetry 100 Intake/Output Intake/Output: Intake & Output 06/06/21 06/07/21 06/08/21 06/09/21 22:59 22:59 23:59 23:59 Intake Total 480 Output Total 700 Balance -220 Labs Labs: Laboratory Results - last 24 hr 06/08/21 06/08/21 06/09/21 19:07 19:07 04:18 WBC 7.0 RBC 4.09 L Hgb 12.5 Hct 37.0 MCV 90.5 MCH 30.6 MCHC 33.8 RDW 12.3 Plt Count 195 MPV 9.9 Immature Gran % (Auto) 0.1 Neut % (Auto) 39.1 L Lymph % (Auto) 46.0 H [place] % (Auto) 8.0 Eos % (Auto) 6.2 H Baso % (Auto) 0.6 Lymph # (Auto) 3.21 H [place] # (Auto) 0.6 Eos # (Auto) 0.4 H Baso # (Auto) 0.0 Abs Immat Gran (auto) 0.01 Absolute Neuts (auto) 2.7 Absolute Nucleated RBC
[2021-06-09 09:35] LABS: Hepatitis B Surface Antigen Negative (Negative)
[2021-06-09 09:40] LABS: HAV RESULT Negative (Negative); Hepatitis B Core IgM Result Negative (Negative)
[2021-06-09 09:51] LABS: Hepatitis C Virus Antibody Negative (Negative)
--- NOTE | 2021-06-09 11:34 | PC.NURSE ---
Spoke with Ibis from poison control at [phone] regarding patient's labs, vital signs, and current status. She recommended adding a CK onto patient's morning labs.
[2021-06-09 11:54] LABS: Creatine Kinase 40 U/L (30-135)
[2021-06-09 12:33] LABS: SARS-CoV-2 RNA PCR Negative
--- NOTE | 2021-06-09 14:36 | PM.DS ---
DS: Admitting Diagnosis Discharge Date 06/09/21 Admitting Diagnosis Intentional overdose DS: Discharge Diagnosis Discharge Diagnosis (1) Overdose: Code(s): T50.901A - Poisoning by unspecified drugs, medicaments and biological substances, accidental (unintentional), initial encounter Status: Acute Assessment and Plan: Patient took extra medications including atorvastatin, Effexor and Seroquel to ?get my boyfriend's attention?. She denies SI/HI. QTC was 451 on admission and slightly improved on repeat. EKG overall remained normal. Patient remained stable. Crisis evaluated the patient and safety contract agreed to. She did well and was able to be dischared home on 06/09/21. (2) Elevated LFTs: Code(s): R79.89 - Other specified abnormal findings of blood chemistry Status: Acute Assessment and Plan: AST and ALT are mildly elevated. The ALT has been elevated in the past but the AST has been normal. She had a CT scan in April 2020 showing diffuse hepatic steatosis. She denies IV drug use but her partner is a known drug user. Hepatitis panel neative here. According to the patient, she only took 30 mg of atorvastatin so would not expect this to have a profound effect on her liver tests. Suspect more likely the elevated LFTs related to hepetic steatosis. test negative. TSH was slightly elevated initially but on repeat was normal. Repeat LFTs as outpatient. (3) OCD (obsessive compulsive disorder): Code(s): F42.9 - Obsessive-compulsive disorder, unspecified Status: Acute Assessment and Plan: Patient with OCD. She is on Seroquel and venlafaxine. These were held. will resume home medications on 06/11/21 since benefits outweigh the risks and that she signed the safety contract. we will hold atorvastatin and check LFTs in a week. (4) Depression: Code(s): F32.9 - Major depressive disorder, single episode, unspecified Status: Acute Assessment and Plan: As above (5) Anxiety: Code(s): F41.9 - Anxiety disorder, unspecified Status: Acute Assessment and Plan: As above (6) Tobacco abuse: Code(s): Z72.0 - Tobacco use Status: Acute Assessment and Plan: Patient was educated about the benefits of smoking cessation. DS: Summary Hospital Course Reason for hospitalization: 25yo female with OCD, depression and anxiety here for intentional overdose. Please see H&P for details Hospital Course: Please see above for details of hospital course. Status at Discharge Cognitive/behavioral status at discharge: Stable Time Spent with Patient Time attestation: Total time spent providing and/or coordinating discharge services: 38 minutes Time spent: Greater than 30 minutes Exam Narrative: AF 98.1 1089/71 79 16 100% ra Gen - NARD lying flat in bed Chest - CTA bilaterally, nml RR CV - RRR S1/S2. telemetry showing no significant dysrhythmias Abd - Soft, NT/ND, Positive BS Ext - No pedal edema Neuro - Alert and oriented. Nonfocal exam. Psych - Nml mood and affect. Good eye contact. Pleasant and cooperative. Skin - Warm and dry DS: Data Data Completed and Pending Labs on day of discharge: Labs from last 24 hours 06/09/21 06/09/21 06/09/21 11:43 04:18 04:18 WBC RBC Hgb Hct MCV MCH MCHC RDW Plt Count MPV Immature Gran % (Auto) Neut % (Auto) Lymph % (Auto) [place] % (Auto) Eos % (Auto) Baso % (Auto) Lymph # (Auto) [place] # (Auto) Eos # (Auto) Baso # (Auto) Abs Immat Gran (auto) Absolute Neuts (auto) Absolute Nucleated RBC Nucleated RBC % Sodium Potassium Chloride Carbon Dioxide Anion Gap BUN Creatinine Estim Creat Clear Calc Estimated GFR Glucose Calcium Total Bilirubin Direct Bilirubin AST ALT Alkaline Phosphatase Total Creatine Kinase 40
== END 2021-06-09 16:25 | disposition home or self-care (01) ==
PROVIDERS: Nurse Practitioner Adult Health; Admitting Provider Internal Medicine; Visit Provider Internal Medicine
DX: T46.6X2A Poisoning by antihyperlipidemic and antiarteriosclerotic drugs, intentional self-harm, initial encounter (principal); T43.592A Poisoning by other antipsychotics and neuroleptics, intentional self-harm, initial encounter; T43.212A Poisoning by selective serotonin and norepinephrine reuptake inhibitors, intentional self-harm, initial encounter; R79.89 Other specified abnormal findings of blood chemistry; F41.8 Other specified anxiety disorders; F42.8 Other obsessive-compulsive disorder; F17.210 Nicotine dependence, cigarettes, uncomplicated; Z20.822 Contact with and (suspected) exposure to COVID-19
CPT/HCPCS: 36415; 80053; 80074; 80076; 80307; 82550; 84443; 85025; 93005; C9803; G0378; G0379; U0003; U0005

== ENCOUNTER 2021-11-11 15:20 | Emergency (ER) | payer OTHER, SELFPAY ==
[2021-11-11] VITALS (16 sets, daily range): BP systolic 122–143; BP diastolic 78–110; PULSE 80–97; RESP 16; TEMP 36.2; O2SAT 90–98
--- NOTE | ~2021-11-11 | XR_ITS ---
XR ankle RT min 3V DATE: 11/11/2021 15:59 INDICATION: Injury TECHNIQUE: 4 views COMPARISON: None FINDINGS: There is mild anterolateral soft tissue swelling of the ankle. No fracture or dislocation o f the ankle or disruption of the ankle mortise is detected. There is an intra-articular fracture at the base of the fifth metatarsal bone. Mild plantar calcaneal enthesopathy. IMPRESSION: Mild anterolateral soft tissue swelling of the ankle In particular fracture of the base of the fifth metatarsal bone Mild plantar calcaneal enthesopathy. Reviewed, dictated and finalized at location A.
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
--- NOTE | ~2021-11-11 | XR_ITS ---
EXAMINATION: XR tibia fibula RT 2V INDICATION: Right leg pain TECHNIQUE: Two views of the right tibia and fibula are obtained. COMPARISON: None available FINDINGS: There is no fracture, dislocation, or subluxation. The bones, soft tissues, and joint space s are normal. IMPRESSION: 1. No acute osseous abnormality. Reviewed, dictated and finalized at location A.
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
[2021-11-11] MEDS: TETANUS,DIPHTHERIA,AC PERTUSSIS ADULT 0.5 ML (ADACEL) IM (16:08)
--- NOTE | 2021-11-11 16:16 | PC.NURSE ---
PT RETURNED FROM CT. SIG OTHER AT BEDSIDE. PT HEAD LAC IS REPAIRED WITH SKIN GLUE PER ERP. PT REPORTING A HEADACHE TO FRONTAL AND LEFT SIDE. ERP AWARE, AWAITING ORDERS AT THIS TIME. PT REPORTS PAIN TO RT MEDIAL KNEE, ERP IS AWARE AND FURTHER IMAGING ORDERED. WILL CONTINUE TO MONITOR.
[2021-11-11] MEDS: HYDROmorphone HCL INJ (*CRX) 2 MG/ML VIAL 1 MG IM (16:23)
--- NOTE | 2021-11-11 16:37 | PC.NURSE ---
WATER PROVIDED REQUESTED PER ERP APPROVAL. PT REPORTS HEADACHE IS GONE. PT IS AWAITING RESULTS AT THIS TIME. WILL CONTINUE TO MONITOR.
--- NOTE | 2021-11-11 17:10 | PC.NURSE ---
+PMS POST BOOT APPLICATION
== END 2021-11-11 17:16 | disposition home or self-care (01) ==
PROVIDERS: Emergency Provider Emergency Medicine; PCP Physician Assistant
DX: S92.354A Nondisplaced fracture of fifth metatarsal bone, right foot, initial encounter for closed fracture (principal); S00.01XA Abrasion of scalp, initial encounter; V89.2XXA Person injured in unspecified motor-vehicle accident, traffic, initial encounter
CPT/HCPCS: 70450; 72125; 73552; 73590; 73610; 73630; 90471; 90715; 96372; 99284; J1170; L2112

== ENCOUNTER 2021-12-29 21:10 | Emergency (ER) | payer OTHER, SELFPAY ==
[2021-12-29 21:15] VITALS: BP 142/94; PULSE 92; RESP 18; TEMP 36.6; O2SAT 97
--- NOTE | 2021-12-29 21:17 | ED.DENTAL ---
HPI - Dental/Oral General Chief complaint: Dental/Oral Stated complaint: tooth pain Time Seen by Provider: 12/29/21 21:16 History of Present Illness HPI Narrative: Pt presents with pain in right upper teeth since yesterday. Pt says the pain is so bad she can't sleep. Pt saw dentist last week and had filling on another tooth. Pt says OTC meds not working. Pt denies fever. Pt points to right upper incisor as most painful. Related Data Home Medications Medication Instructions Recorded Confirmed venlafaxine 150 mg 150 mg PO DAILY 03/04/20 12/29/21 capsule,extended release 24 hr cyproheptadine 4 mg tablet 4 mg PO DAILY 12/29/21 12/29/21 fluvoxamine 100 mg tablet 100 mg PO DAILY 12/29/21 12/29/21 Allergies Allergy/AdvReac Type Severity Reaction Status Date / Time No Known Allergies Allergy Verified 11/11/21 15:27 Review of Systems Review of Systems: All systems reviewed & are unremarkable except as noted in HPI and below PMFSH Past Medical History Medical History (Updated 12/29/21 @ 21:59 by Jayde Castillo III, DO) Anxiety Depression OCD (obsessive compulsive disorder) Overdose Ureterolithiasis Surgical History Surgical History No significant past surgical history Family History Family History Other No significant family history Social History Social History (Updated 06/08/21 @ 20:21 by Ayesha Alcantara APRN) Smoking packs per day: 0.5 Smoking cigarettes per day: 10.0 Years smoked: 2 Smoking pack-years: 1.00 Smoking status: Current every day smoker Alcohol intake: never Alcohol use details: very rare minimal alcohol use Substance use: former Substance use type: marijuana Spiritual care concerns: No Exam Const: General: healthy appearing Nutritional Appearance: well nourished Orientation/consciousness: patient oriented x3 Limitations: no limitations HENMT: Head: normal to inspection Face/Nose/Sinus: Normal external nose present Face and sinus: normal facial exam Mouth: Yes Normal oral and palatal mucosa present Teeth and gingiva: dentition normal Throat: posterior oropharynx normal Other: no evidence of abscess no gingival swelling or significant redness in area of discomfort Neck: Neck: normal visual inspection and no lymphadenopathy Resp: Effort & Inspection: normal respiratory effort Cardio: Rate: regular rate Rhythm: regular rhythm GI: GI Palp: Yes Soft to palpation Skin: General skin exam: normal color Neuro: General: patient oriented x3, moves all extremities, no meningeal signs and no focal motor deficits Cranial nerves: Yes Nystagmus not present Speech: normal speech Extrem: General: normal to inspection and no clubbing, cyanosis or edema Psych: Mental Status: mental status grossly normal Affect: Anxious affect present Attitude: cooperative Course Vital Signs Vital signs: Vital Signs Temperature 97.9 F 12/29/21 21:15 Pulse Rate 92 12/29/21 21:15 Respiratory Rate 18 12/29/21 21:15 Blood Pressure 142/94 H 12/29/21 21:15 Pulse Oximetry 97 12/29/21 21:15 Oxygen Delivery Room Air 12/29/21 21:15 Temperature 97.9 F 12/29/21 21:15 Pulse Rate 82 12/29/21 21:58 Respiratory Rate 18 12/29/21 21:58 Blood Pressure 130/74 12/29/21 21:58 Pulse Oximetry 98 12/29/21 21:58 Oxygen Delivery Room Air 12/29/21 21:58 Discharge Plan Discharge Clinical Impression: Toothache Patient Disposition: Home, Self-Care Condition: Improved Instructions: Antibiotic Form, Toothache (ED) Prescriptions: New penicillin V potassium 500 mg tablet 500 mg PO QID 10 Days Qty: 40 0RF naproxen 500 mg tablet 500 mg PO BID PRN (Reason: pain) Qty: 20 0RF No Action cyproheptadine 4 mg tablet 4 mg PO DAILY fluvoxamine 100 mg tablet 100 mg PO DAILY venlafaxine 150 mg c
[2021-12-29] MEDS: KETOROLAC 30 MG/ML VIAL (*BKC) IM (21:28)
[2021-12-29 21:58] VITALS: BP 130/74; PULSE 82; RESP 18; O2SAT 98
== END 2021-12-29 22:06 | disposition home or self-care (01) ==
PROVIDERS: Emergency Provider Emergency Medicine; PCP Physician Assistant
DX: K08.89 Other specified disorders of teeth and supporting structures (principal)
CPT/HCPCS: 96372; 99283; A9270; J1885

== ENCOUNTER 2024-09-16 15:34 | Emergency (ER) | payer OTHER, SELFPAY ==
[2024-09-16 15:36] VITALS: BP 157/113; PULSE 97; RESP 20; TEMP 36.6; O2SAT 99
--- NOTE | 2024-09-16 15:46 | ED_ITS ---
HPI - Dental/Oral General Chief complaint: Dental/Oral Stated complaint: Dental Pain Time Seen by Provider: 09/16/24 15:38 Source: patient Mode of arrival: ambulatory Limitations: no limitations History of Present Illness HPI Narrative: this is a 29-year-old female with history of depression presents with dental pain recently saw her dentist and gave her some pain medication she has been out currently rating her pain about a 10/10 with no fever chills no shortness of breath. MD Complaint: tooth pain Teeth map: 2 1. dental pain with surrounding gum inflammation Onset (ago): day(s) Severity: severe Severity scale (1-10): 10 Related Data Home Medications ?Medication ?Instructions ?Recorded ?Confirmed ?Last Taken ?Type venlafaxine 150 mg 150 mg PO DAILY 03/04/20 12/29/21 06/08/21 11:30 History capsule,extended release 24 hr cyproheptadine 4 mg tablet 4 mg PO DAILY 12/29/21 12/29/21 Unknown History fluvoxamine 100 mg tablet 100 mg PO DAILY 12/29/21 12/29/21 Unknown History Allergies Allergy/AdvReac Type Severity Reaction Status Date / Time No Known Allergies Allergy Verified 09/16/24 15:37 Review of Systems 2 Review of Systems: All systems reviewed & are unremarkable except as noted in HPI and below PMFSH Past Medical History Medical History OCD (obsessive compulsive disorder) Anxiety Overdose Ureterolithiasis Depression Surgical History Surgical History No significant past surgical history Family History Family History Other No significant family history Social History Social History Smoking packs per day: 0.5 Smoking cigarettes per day: 10.0 Years smoked: 2 Smoking pack-years: 1.00 Smoking status: Current every day smoker Alcohol intake: never Alcohol use details: very rare minimal alcohol use Substance use: former Substance use type: marijuana Living arrangements: with family Spiritual care concerns: No Exam 2 Const: General: healthy appearing Nutritional Appearance: well nourished Orientation/consciousness: patient oriented x3 Limitations: no limitations HENMT: Head: normal to inspection Neck: Neck: normal visual inspection, no lymphadenopathy and no meningeal signs Chest: Chest palpation & inspection: normal inspection of the chest Resp: Effort & Inspection: normal respiratory effort Auscultation: clear to auscultation bilaterally Cardio: Rate: regular rate Rhythm: regular rhythm GI: GI Palp: Yes Soft to palpation : General: Yes bladder normal to palpation Neuro: General: patient oriented x3 and moves all extremities Psych: Affect: Anxious affect present Course Course Emergency Course: 60mg IM Toradol administered and patient was prescribed antibiotics pain medication and advised to follow with her dentist. Critical Care Time Critical Care Time Critical Care Time: No Discharge Plan Discharge Clinical Impression: Toothache, Dental abscess Patient Disposition: Home Condition: Stable Instructions: Antibiotic Form, Dental Abscess (ED), Toothache (ED) Additional Instructions: Advised take medication as prescribed and follow-up with dentist as soon as possible for evaluation treatment. Patient Language: Surinamese Prescriptions: New oxycodone-acetaminophen [Percocet] 5-325 mg tablet 1 tablet PO Q6H PRN (Reason: pain) Qty: 14 0RF amoxicillin-pot clavulanate [Augmentin] 500-125 mg tablet 1 tablet PO TID Qty: 30 0RF lidocaine HCl [Lidocaine Viscous] 2 % solution 1 applic mucous membrane QID PRN (Reason: pain) 5 Days Qty: 100 0RF No Action cyproheptadine 4 mg tablet 4 mg PO DAILY fluvoxamine 100 mg tablet 100 mg PO DAILY penicillin V potassium 500 mg tablet 500 mg PO QID 10 Days Qty: 40 0RF naproxen 500 mg tablet 500 mg PO BID PRN (Reason: pain) Qty: 20 0RF venlafaxine 150 mg capsule,extended release 24hr 150 mg PO DAILY Follow-up/Referrals: Georgie,MIGUE Rosario [Primary Care Provider] - Stand Alone Forms: Work/School Release IP Time of Disposition: 15:51
[2024-09-16] MEDS: KETOROLAC (*BKC) 60 MG/2 ML VIAL IM (15:49)
[2024-09-16 16:14] VITALS: BP 145/92; PULSE 85; RESP 17; TEMP 36.6; O2SAT 100
== END 2024-09-16 16:14 | disposition home or self-care (01) ==
PROVIDERS: Emergency Provider Emergency Medicine; PCP Physician Assistant
DX: K04.7 Periapical abscess without sinus (principal); F17.210 Nicotine dependence, cigarettes, uncomplicated
CPT/HCPCS: 96372; 99283; J1885